=== PATIENT | male | born 1975 | race Caucasian/White ===

== ENCOUNTER 2021-09-16 20:01 | Emergency (ER) | payer OTHER ==
[~2021-09-16] VITALS: Ht 185.4 cm; Wt 113.4 kg
[~2021-09-16 20:01] MED LIST: CYCLOBENZAPRINE10 MG PO; CYMBALTA 30MG C30 MG PO; MELOXICAM15 MG PO; NEURONTIN300 MG PO; NORCO 5-325 TA1 EACH PO
[2021-09-16 20:29] LABS: BASOPHIL 0.1 % (0-2); EOSINOPHIL 0 % (0-5); HGB 13.3 g/dl (13.2-18.0); LYMPHOCYTE 2.7 % (15-48); MCV 85.6 fL (78.0-100.0); MONOCYTE 5.6 % (0-12); MPV 13.3 fL (6.0-9.5); NEUTROPHIL 88.7 % (41-80); NRBC 0; PLT 442 K/uL (150-400); RBC 4.44 M/uL (4.70-6.00); RDW 12.7 % (11.5-14.0)
[2021-09-16 20:31] LABS: WBC 23.6 K/uL (4.0-10.5)
[2021-09-16 20:48] LABS: LACTIC ACID 6.8 mmol/L (0.4-1.9)
[2021-09-16 20:59] LABS: ALBUMIN 1.9 g/dL (3.4-5.0); BILIRUBIN - TOTAL 1.7 mg/dL (0.2-1.0); BUN/CREAT RATIO (CALC) 37.2 RATIO; CREATININE 1.45 mg/dL (0.67-1.17); GLOBULIN (CALCULATION) 5.8 g/dL; MAGNESIUM 3.1 mg/dL (1.8-2.4); TOTAL PROTEIN 7.7 g/dL (6.4-8.2)
[2021-09-16 21:00] LABS: POTASSIUM 5.2 mmol/L (3.5-5.1)
[2021-09-16 21:07] LABS: CORONAVIRUS 2019 SARS-COV-2 NEGATIVE (NEGATIVE); INFLUENZA A NAA NEGATIVE (NEGATIVE)
[2021-09-16 21:52] LABS: INR 1.47 (0.9-1.2); PROTHROMBIN TIME 17.1 SECONDS (11.8-13.4); PTT 32.6 SECONDS (24.4-34.7)
[2021-09-16 22:51] LABS: BILIRUBIN NEGATIVE (NEGATIVE); BLOOD 3+ Ery/uL (NEGATIVE); CLARITY CLEAR (CLEAR); COLOR YELLOW (YELLOW); GLUCOSE (U) 3+ mg/dL (NORMAL); LEUKOCYTES TRACE Leu/uL (NEGATIVE); NITRITE NEGATIVE (NEGATIVE); PROTEIN TRACE (LOW) mg/dL (NEGATIVE); SPECIFIC GRAVITY <=1.005 (1.001-1.030); pH 5.5 (5.0-9.0)
[2021-09-16 23:10] LABS: BUN/CREAT RATIO (CALC) 41.2 RATIO; CREATININE 1.19 mg/dL (0.67-1.17); POTASSIUM 4.4 mmol/L (3.5-5.1)
[2021-09-16 23:17] LABS: BACTERIA 1+; YEAST PRESENT
[2021-09-16 23:18] LABS: BASOPHIL 0.4 % (0-2); EOSINOPHIL 0 % (0-5); HCT 35.9 % (42.0-52.0); HGB 12.6 g/dl (13.2-18.0); LYMPHOCYTE 3.3 % (15-48); MCHC 35.1 g/dL (32.0-36.0); MCV 85.5 fL (78.0-100.0); MONOCYTE 1.4 % (0-12); MPV 13.2 fL (6.0-9.5); NEUTROPHIL 92.4 % (41-80); NRBC 0; PLT 391 K/uL (150-400); RDW 12.4 % (11.5-14.0)
[2021-09-16 23:24] LABS: WBC 24.8 K/uL (4.0-10.5)
[2021-09-17 02:17] LABS: POTASSIUM 3.8 mmol/L (3.5-5.1)
[2021-09-17 04:35] LABS: BUN/CREAT RATIO (CALC) 48.3 RATIO; CREATININE 0.89 mg/dL (0.67-1.17); POTASSIUM 3.6 mmol/L (3.5-5.1)
[2021-09-17 07:49] LABS: BASOPHIL 0 % (0-2); EOSINOPHIL 0 % (0-5); HCT 37.9 % (42.0-52.0); HGB 13.1 g/dl (13.2-18.0); LYMPHOCYTE 4.5 % (15-48); MCH 30.3 pg (25.0-31.0); MCHC 34.6 g/dL (32.0-36.0); MCV 87.5 fL (78.0-100.0); MONOCYTE 6.5 % (0-12); MPV 12.8 fL (6.0-9.5); NEUTROPHIL 86.6 % (41-80); NRBC 0; PLT 310 K/uL (150-400); RBC 4.33 M/uL (4.70-6.00); RDW 12.7 % (11.5-14.0)
[2021-09-17 08:05] LABS: ALBUMIN 1.6 g/dL (3.4-5.0); BUN/CREAT RATIO (CALC) 46.8 RATIO; CREATININE 0.79 mg/dL (0.67-1.17); GLOBULIN (CALCULATION) 5.5 g/dL; MAGNESIUM 2.9 mg/dL (1.8-2.4); PHOSPHORUS 2.2 mg/dL (2.6-4.7); POTASSIUM 4.1 mmol/L (3.5-5.1); TOTAL PROTEIN 7.1 g/dL (6.4-8.2)
[2021-09-17 08:20] LABS: WBC 25.3 K/uL (4.0-10.5)
== END 2021-09-17 13:02 | disposition other institution (70) ==
LOC: FER 20:01
PROVIDERS: Emergency Medicine; Internal Medicine
DX: S80.02XA Contusion of left knee, initial encounter (principal); S80.01XA Contusion of right knee, initial encounter; R73.9 Hyperglycemia, unspecified; E87.0 Hyperosmolality and hypernatremia; A41.9 Sepsis, unspecified organism; R65.20 Severe sepsis without septic shock; N17.9 Acute kidney failure, unspecified; R74.8 Abnormal levels of other serum enzymes; K61.0 Anal abscess; L89.159 Pressure ulcer of sacral region, unspecified stage; F17.210 Nicotine dependence, cigarettes, uncomplicated; I10 Essential (primary) hypertension; Z20.822 Contact with and (suspected) exposure to COVID-19; W01.0XXA Fall on same level from slipping, tripping and stumbling without subsequent striking against object, initial encounter; Y92.009 Unspecified place in unspecified non-institutional (private) residence as the place of occurrence of the external cause
CPT/HCPCS: 36415; 71250; 73560; 80048; 80053; 81001; 82009; 82550; 83605; 83735; 83880; 84100; 84145; 84484; 85025; 85610; 85730; 87040; 87088; 93005; 96365; 96366; 96367; 96368; 96375; 96376; J1170; J2543; J3370; J3480; J7030; J7050; U0002